=== PATIENT | male | born 1960 | race Caucasian/White ===

== ENCOUNTER 2020-02-29 12:52 | Inpatient (IN) | payer OTHER ==
[~2020-02-29] VITALS: Ht 182.9 cm; Wt 84.8 kg
--- NOTE | 2020-02-29 13:18 | NUR ---
DR ROGERS BS FOR EXAM. PT C/O SOB. ABLE TO SPEAK IN COMPLETE SENTENCES. STATES HE WAS SEEN AT [facility] A COUPLE OF WEEKS AGO, DX'D W/ SOB, RX FOR INHALERS. STATES SOB HAS "GOTTEN BETTER". C/O EYE DISCHARGE - ON-GOING PROBLEM FOR A COUPLE OF MONTHS. C/O BILATERAL LEG SWELLING. REPORTS WAKING DURING THE NOC DUE TO SOB; NOT WORSE W/ LYING SUPINE.
[2020-02-29] MEDS ORDERED: INHALER (13:27)
--- NOTE | 2020-02-29 13:40 | NUR ---
PER DR ROGERS, RESP PROTOCOL INITIATED FOR POTENTIAL RESP TX. RESP TX NOT ORDERED AT THIS TIME.
--- NOTE | 2020-02-29 13:42 | NUR ---
PREDNISONE GIVEN PER EMAR
[2020-02-29 13:52] LABS: BASOPHILS # (AUTO) 0.08 x10^3/uL (0-0.1); BASOPHILS % (AUTO) 1 % (0-1); EOSINOPHILS # (AUTO) 0.11 x10^3/uL (0-0.4); EOSINOPHILS % (AUTO) 1 % (1-7); LYMPHOCYTES # (AUTO) 1.77 x10^3/uL (1-3.4); LYMPHOCYTES % (AUTO) 16 % (22-44); MD NO; MEAN CORPUSCULAR HEMOGLOBIN 30.9 pg (27.5-34.5); MEAN CORPUSCULAR HGB CONC 33.2 g/dL (33.2-36.2); MEAN CORPUSCULAR VOLUME 93.2 fL (81-97); MEAN PLATELET VOLUME 8.2 fL (7.4-10.4); MONOCYTES # (AUTO) 0.78 x10^3/uL (0.2-0.8); MONOCYTES % (AUTO) 7 % (2-9); NEUTROPHILS # (AUTO) 8.28 x10^3/uL (1.8-6.8); NEUTROPHILS % (AUTO) 75 % (42-75); PLATELET COUNT 315 x10^3/uL (130-400); RED BLOOD COUNT 4.85 x10^6/uL (4.38-5.82); RED CELL DISTRIBUTION WIDTH 15.1 % (9.4-14.8)
[2020-02-29 13:59] LABS: ALANINE AMINOTRANSFERASE 37 U/L (12-78); ALBUMIN 3.1 g/dL (3.4-5.0); ANION GAP 8 mmol/L (5-15); CALCIUM 8.7 mg/dL (8.5-10.1); CHLORIDE 109 mmol/L (98-107); CREATININE 1.32 mg/dL (0.7-1.3)
[2020-02-29 14:04] LABS: ALKALINE PHOSPHATASE 73 U/L (45-117); BILIRUBIN,TOTAL 1.1 mg/dL (0.2-1.0); TOTAL PROTEIN 6.6 g/dL (6.4-8.2)
[2020-02-29 14:08] LABS: TROPONIN I 0.254 ng/mL (0.000-0.045)
[2020-02-29] MEDS ORDERED: SODIUM CHLORIDE 0.9%, 500ML IVBOLUS ONE (14:30)
--- NOTE | 2020-02-29 14:32 | NUR ---
IV INITIATED, NS BOLUS HUNG. PT AWAITING CTA. CARDIAC MONITORING CONTINUING.
--- NOTE | 2020-02-29 15:36 | NUR ---
CALLED CT FOR STATUS, PER REGINALD, PT IS "2ND ON OUR LIST"
--- NOTE | 2020-02-29 16:30 | NUR ---
CALLED [facility], THE TECH WILL COME FOR PT NOW. DR ROGERS WILL BE NOTIFIED.
[2020-02-29] MEDS ORDERED: OMNIPAQUE 350 MG/ML, 75ML BOTTLE ONE (16:48)
--- NOTE | 2020-02-29 16:59 | NUR ---
PT REPORT TO KEYUR BENITO RN. PT CARE TRANSFERRED.
[2020-02-29] MEDS ORDERED: FUROSEMIDE 40 MG/4 ML ONE (17:04)
--- NOTE | 2020-02-29 17:13 | NUR ---
TASK RN NOTE: UPON ENTRY TO ROOM, PT DIAPHORETIC, PALE, REPORTS "NOT FEELING GREAT" EKG COMPLETED AND GIVEN TO DR ROGERS, WHO ALSO CAME IN TO ASSESS PT AND DISCUSS PLANS FOR ADMISSION TO HOSPITAL. NO FURTHER ORDERS AT THIS TIME.
[2020-02-29] MEDS ORDERED: FUROSEMIDE 40 MG/4 ML IV ONE (17:30)
--- NOTE | 2020-02-29 17:42 | NUR ---
AMBULATORY TO & FROM [facility] W/OUT INCIDENT, GAIT STEADY.
--- NOTE | 2020-02-29 18:31 | NUR ---
PT REPORT TO RUPAL GATES FOR ROOM 506
[2020-02-29 19:30] VITALS: BP 125/90
[2020-02-29] MEDS ORDERED: NITROGLYCERIN 0.4 MG/SPRAY SL PRN (19:30)
[2020-02-29] MEDS ORDERED: ASPIRIN 81 MG TABLET CHEW PO ONE (19:30)
[2020-02-29] MEDS ORDERED: ONDANSETRON 2MG/ML, 2ML IV PRN (19:30)
[2020-02-29] MEDS ORDERED: METOPROLOL SUCCINATE 25 MG TAB.ER.24H PO SCH (19:30)
[2020-02-29] MEDS: HEPARIN 5,000 UNITS/ML, 1ML SQ SCH (21:42)
[2020-02-29] MEDS: POLYTRIM OPHTH 10ML LEFTEYE SCH (21:42)
[2020-02-29] MEDS: ATORVASTATIN 80 MG TABLET PO SCH (21:43)
[2020-02-29] MEDS: NICOTINE 21 MG/24 HR PATCH.TD24 TD SCH (21:43)
[2020-02-29] MEDS: SODIUM CHLORIDE FLUSH 10ML SYR IVF SCH (21:43)
[2020-02-29 21:54] VITALS: BP 125/90
[2020-03-01 01:07] LABS: TROPONIN I 0.124 ng/mL (0.000-0.045)
[2020-03-01 01:17] VITALS: BP 117/83
[2020-03-01] MEDS: POLYTRIM OPHTH 10ML LEFTEYE SCH ×6 (01:20→20:51)
[2020-03-01 05:49] LABS: BASOPHILS # (AUTO) 0.01 x10^3/uL (0-0.1); BASOPHILS % (AUTO) 0 % (0-1); EOSINOPHILS # (AUTO) 0.15 x10^3/uL (0-0.4); EOSINOPHILS % (AUTO) 1 % (1-7); LYMPHOCYTES # (AUTO) 1.14 x10^3/uL (1-3.4); LYMPHOCYTES % (AUTO) 7 % (22-44); MD NO; MEAN CORPUSCULAR HEMOGLOBIN 30.6 pg (27.5-34.5); MEAN CORPUSCULAR HGB CONC 32.6 g/dL (33.2-36.2); MEAN CORPUSCULAR VOLUME 93.8 fL (81-97); MEAN PLATELET VOLUME 8.3 fL (7.4-10.4); MONOCYTES # (AUTO) 0.79 x10^3/uL (0.2-0.8); MONOCYTES % (AUTO) 5 % (2-9); NEUTROPHILS # (AUTO) 13.95 x10^3/uL (1.8-6.8); NEUTROPHILS % (AUTO) 87 % (42-75); PLATELET COUNT 344 x10^3/uL (130-400); RED BLOOD COUNT 5.21 x10^6/uL (4.38-5.82); RED CELL DISTRIBUTION WIDTH 14.5 % (9.4-14.8)
[2020-03-01 05:50] LABS: ALBUMIN 3.2 g/dL (3.4-5.0); ANION GAP 6 mmol/L (5-15); CALCIUM 8.8 mg/dL (8.5-10.1); CHLORIDE 107 mmol/L (98-107)
[2020-03-01 05:54] LABS: ALANINE AMINOTRANSFERASE 37 U/L (12-78); ALKALINE PHOSPHATASE 79 U/L (45-117); BILIRUBIN,TOTAL 1.3 mg/dL (0.2-1.0); CHOL/HDL RATIO 3.5; CHOLESTEROL, TOTAL 166 mg/dL (140-239); CREATININE 1.28 mg/dL (0.7-1.3); HDL CHOL % 28 % (26-37); HDL CHOLESTEROL (DIRECT) 47 mg/dL (40-60); LDL CHOLESTEROL,CALCULATED 106 mg/dL (54-169); LDL/HDL RATIO 2.3 (0.5-3.0); TOTAL PROTEIN 6.9 g/dL (6.4-8.2); TRIGLYCERIDES 67 mg/dL (50-200); VLDL CHOLESTEROL 13 mg/dL (0-25)
[2020-03-01] MEDS: HEPARIN 5,000 UNITS/ML, 1ML SQ SCH ×3 (06:21→21:00)
[2020-03-01 07:32] VITALS: BP 116/82
[2020-03-01] MEDS: SODIUM CHLORIDE FLUSH 10ML SYR IVF SCH ×2 (09:32→20:50)
[2020-03-01 12:34] VITALS: BP 117/82
[2020-03-01] MEDS: ASPIRIN 325 MG TABLET PO SCH (14:31)
[2020-03-01] MEDS: FUROSEMIDE 40 MG/4 ML IV SCH ×2 (14:31→15:57)
[2020-03-01 17:30] VITALS: BP 111/86
[2020-03-01] MEDS: CARVEDILOL 6.25 MG TABLET PO SCH (17:31)
[2020-03-01 20:46] VITALS: BP 113/77
[2020-03-01] MEDS: ATORVASTATIN 80 MG TABLET PO SCH (20:50)
[2020-03-01] MEDS: NICOTINE 21 MG/24 HR PATCH.TD24 TD SCH (20:51)
[2020-03-02] MEDS: POLYTRIM OPHTH 10ML LEFTEYE SCH ×4 (01:26→14:30)
[2020-03-02 01:27] VITALS: BP 116/87
[2020-03-02 04:50] LABS: BASOPHILS # (AUTO) 0.06 x10^3/uL (0-0.1); BASOPHILS % (AUTO) 0 % (0-1); EOSINOPHILS # (AUTO) 0.36 x10^3/uL (0-0.4); EOSINOPHILS % (AUTO) 3 % (1-7); LYMPHOCYTES # (AUTO) 2.66 x10^3/uL (1-3.4); LYMPHOCYTES % (AUTO) 19 % (22-44); MD NO; MEAN CORPUSCULAR HEMOGLOBIN 30.3 pg (27.5-34.5); MEAN CORPUSCULAR HGB CONC 32.1 g/dL (33.2-36.2); MEAN CORPUSCULAR VOLUME 94.3 fL (81-97); MEAN PLATELET VOLUME 8.5 fL (7.4-10.4); MONOCYTES # (AUTO) 0.98 x10^3/uL (0.2-0.8); MONOCYTES % (AUTO) 7 % (2-9); NEUTROPHILS % (AUTO) 71 % (42-75); PLATELET COUNT 336 x10^3/uL (130-400); RED BLOOD COUNT 5.35 x10^6/uL (4.38-5.82); RED CELL DISTRIBUTION WIDTH 14.8 % (9.4-14.8)
[2020-03-02 05:00] LABS: CHLORIDE 105 mmol/L (98-107)
[2020-03-02 05:04] LABS: ANION GAP 8 mmol/L (5-15); CALCIUM 9.1 mg/dL (8.5-10.1); CREATININE 1.28 mg/dL (0.7-1.3)
[2020-03-02] MEDS: HEPARIN 5,000 UNITS/ML, 1ML SQ SCH ×2 (05:13→14:00)
[2020-03-02] MEDS: CARVEDILOL 6.25 MG TABLET PO SCH (05:14)
[2020-03-02] MEDS: ASPIRIN 325 MG TABLET PO SCH (05:14)
[2020-03-02 07:20] VITALS: BP 129/88
[2020-03-02] MEDS ORDERED: SPIRONOLACTONE 25 MG TABLET PO SCH (09:00)
[2020-03-02] MEDS ORDERED: LISINOPRIL 10 MG TABLET PO SCH (09:00)
[2020-03-02] MEDS: SODIUM CHLORIDE FLUSH 10ML SYR IVF SCH (09:37)
[2020-03-02] MEDS: FUROSEMIDE 40 MG/4 ML IV SCH (09:37)
[2020-03-02 12:45] VITALS: BP 111/79
[2020-03-02] MEDS ORDERED: SPIR25TA PO (13:22)
[2020-03-02] MEDS ORDERED: CARV12.52 PO (13:22)
[2020-03-02] MEDS ORDERED: ASPI81TA45 PO (13:22)
[2020-03-02] MEDS ORDERED: FURO40TA6 PO (13:22)
[2020-03-02] MEDS ORDERED: LISI-167 PO (13:22)
[2020-03-02] MEDS ORDERED: ATOR-2 PO (13:22)
[2020-03-02] MEDS ORDERED: CARVEDILOL 12.5 MG TABLET PO SCH (18:00)
== END 2020-03-02 15:35 | disposition home or self-care (01) | DRG 682 ==
LOC: ED 14:18 → INTOOBSV 17:34 → OBSVTOIN 17:34 → EDIP 17:34 → 5SO 18:51 → DCLOUNGE 03-02 15:18
PROVIDERS: ADMIT Internal Medicine; ATTEND Internal Medicine
DX: N17.0 Acute kidney failure with tubular necrosis (principal); I50.21 Acute systolic (congestive) heart failure; I42.9 Cardiomyopathy, unspecified; R73.9 Hyperglycemia, unspecified; Z79.899 Other long term (current) drug therapy
CPT/HCPCS: 36415; 71045; 71275; 80053; 80061; 83036; 83735; 83880; 84443; 84484; 85025; 93005; C8929; J1644; J1940; J7040; J7512; Q9957; Q9967; 80048; G0378

== ENCOUNTER 2021-02-21 18:21 | Emergency (ER) | payer SELFPAY ==
[~2021-02-21] VITALS: Ht 182.9 cm; Wt 85.4 kg
[~2021-02-21 18:21] MED LIST: ASPI81TA45 PO; ATOR-2 PO; CARV12.52 PO; FURO40TA6 PO; INHALER; LISI-167 PO; SPIR25TA PO
--- NOTE | 2021-02-21 19:46 | NUR ---
pt arrived via private vehicle, pt complaining of right sided abdominal and flank pain associated with nausea and vomitting, pt in in 05/19 pain
[2021-02-21] MEDS ORDERED: KETOROLAC 30 MG/1 ML IM ONE (20:00)
[2021-02-21 20:07] LABS: MICROSCOPIC AUTO
[2021-02-21 20:15] LABS: BASOPHILS % (AUTO) 1 % (0-1); EOSINOPHILS % (AUTO) 2 % (1-7); LYMPHOCYTES % (AUTO) 13 % (22-44); MEAN CORPUSCULAR HEMOGLOBIN 31.4 pg (27.5-34.5); MEAN CORPUSCULAR HGB CONC 33.8 g/dL (33.2-36.2); MEAN PLATELET VOLUME 8.3 fL (7.4-10.4); MONOCYTES % (AUTO) 10 % (2-9); NEUTROPHILS % (AUTO) 74 % (42-75); PLATELET COUNT 305 x10^3/uL (130-400); RED BLOOD COUNT 5.05 x10^6/uL (4.38-5.82); RED CELL DISTRIBUTION WIDTH 13.9 % (9.4-14.8)
[2021-02-21] MEDS ORDERED: KETOROLAC 60 MG/2 ML ONE (20:23)
[2021-02-21 20:27] LABS: ALANINE AMINOTRANSFERASE 37 U/L (12-78); ALBUMIN 4.1 g/dL (3.4-5.0); ANION GAP 7 mmol/L (5-15); CALCIUM 9.4 mg/dL (8.5-10.1); CHLORIDE 110 mmol/L (98-107); CREATININE 1.42 mg/dL (0.7-1.3)
[2021-02-21 20:29] LABS: ALKALINE PHOSPHATASE 95 U/L (45-117); BILIRUBIN,TOTAL 0.6 mg/dL (0.2-1.0); TOTAL PROTEIN 7.7 g/dL (6.4-8.2)
--- NOTE | 2021-02-21 20:51 | NUR ---
pt currently sleeping in room after IM pain meds were administered, all vitals stable, pending labs/radiology results
--- NOTE | 2021-02-21 21:51 | NUR ---
pt states he is currently not in pain, all needs in reach, call light in reach, NAD, vitals stable
[2021-02-21 22:05] VITALS: BP 129/81
== END 2021-02-21 22:21 | disposition home or self-care (01) ==
LOC: ED 21:26
DX: N13.2 Hydronephrosis with renal and ureteral calculous obstruction (principal); R31.9 Hematuria, unspecified; D72.829 Elevated white blood cell count, unspecified; I11.0 Hypertensive heart disease with heart failure; R10.9 Unspecified abdominal pain; I50.9 Heart failure, unspecified; F17.210 Nicotine dependence, cigarettes, uncomplicated
CPT/HCPCS: 36415; 71046; 74176; 80053; 81001; 85025; 96372; 99285; J1885